=== PATIENT | female | born 1965 | race Caucasian/White ===

== ENCOUNTER 2022-09-04 08:34 | Outpatient (CLI) | payer OTHER, SELFPAY | END 2022-09-04 08:35 | disposition home or self-care (01) | LOC: NFLDREF 09-06 06:35 | PROVIDERS: Visit Provider Obstetrics & Gynecology | DX: N95.0 Postmenopausal bleeding (principal) | CPT/HCPCS: 83001 ==

== ENCOUNTER 2022-09-25 08:10 | Day surgery (SDC) | payer OTHER, SELFPAY ==
[2022-09-25] MEDS: LACTATED RINGERS 1000 ML 1,000 ML 100 ML IV (08:15)
[2022-09-25] MEDS: BUPIVACAINE 0.25% 30 ML INJECTION (08:22)
[2022-09-25] MEDS: LIDOCAINE 1% MDV 20 ML INJECTION (08:22)
[2022-09-25 08:25] VITALS: BP 95/64; PULSE 65; RESP 16; TEMP 36.2; O2SAT 98; BMI 22.3
[2022-09-25] MEDS: SODIUM CHLORIDE 0.9 % (FLUSH) 10 ML SYRINGE IVF (08:37)
--- NOTE | 2022-09-25 09:41 | W.PM.GYNPROC ---
Procedure Note Date of procedure: 09/25/22 Pre-op diagnosis: Postmenopausal vs. perimenopausal bleeding, possible endometrial polyp Post-op diagnosis: same Procedure: Hysteroscopy, D&C, polypectomy Anesthesia: MAC and local Complications: None. Surgeon: Kavita Laird MD Estimated blood loss (mL): 5 Pathology: specimen obtained, sent to pathology Condition: stable Disposition: same day Findings: Two endometrial polyps. Procedure Description: PREOPERATIVE DIAGNOSIS: 1. Postmenopausal versus sidra menopausal bleeding 2. Possible endometrial polyp(s) on endometrial biopsy. POSTOPERATIVE DIAGNOSIS: 1. Postmenopausal versus sidra menopausal bleeding 2. Possible endometrial polyp(s) on endometrial biopsy. NAME OF PROCEDURE: 1. Hysteroscopy. 2. D and C 3. Polypectomy. SURGEON: Sisi. ANESTHESIA: Monitored anesthesia care and paracervical block. COMPLICATIONS: None.. ESTIMATED BLOOD LOSS: 5 mL. FINDINGS: 2 endometrial polyps, 1 significantly large than the other. PATHOLOGY SPECIMENS: 1. Endometrial polyp fragments and endometrial curettings sent as a single specimen.. PROCEDURE: After obtaining informed consent, the patient was taken to the operating room where she received monitored anesthesia care. She was prepared and draped in the normal sterile fashion, in the dorsal lithotomy position. An open-sided bivalve speculum was introduced into the vagina and the cervix visualized. The anterior lip of the cervix was grasped with a single-tooth tenaculum for traction. A paracervical block was then administered using a total of 20 mL of a 50/50 mixture of 0.25% Marcaine and 1% lidocaine plain. The uterus was gently sounded. Sound length was 5 cm. The cervix was gently dilated to a #7 Hegar dilator. A 5 mm hysteroscope was then advanced under direct visualization through the cervix into the uterine cavity. Sterile normal saline was used as distending medium. The uterine cavity was carefully inspected with the findings noted above. Pictures were taken for documentation purposes. The TruClear morcellator was inserted through the operating channel in the hysteroscope. The morcellator was used to remove the polyps in their entirety. The hysteroscope was then removed. The endometrial lining was then sharply curetted, little residual tissue was obtained. The tenaculum was removed. All instruments were then removed. The patient tolerated the procedure well. Sponge, lap, needle, and instrument counts reported as correct x2. The patient was taken to the recovery room awake in a stable condition.
[2022-09-25 09:47] VITALS: BP 111/69; PULSE 54; RESP 14; TEMP 36.6; O2SAT 97
--- NOTE | 2022-09-25 09:48 | W.ANESCHARGE ---
Anesthesia Charges Start Date/Time Anesthesia Start Date: 09/25/22 Anesthesia Start Time: 09:06 Stop Date/Time Anesthesia Stop Date: 09/25/22 Anesthesia Stop Time: 09:47
[2022-09-25 10:00] VITALS: BP 105/66; PULSE 49; RESP 16; O2SAT 100
[2022-09-25 10:15] VITALS: BP 119/68; PULSE 55; RESP 16; O2SAT 100
[2022-09-25 10:49] VITALS: BP 103/63; PULSE 51; RESP 16; O2SAT 97
== END 2022-09-25 10:52 | disposition home or self-care (01) ==
PROVIDERS: PCP Family Medicine; Visit Provider Obstetrics & Gynecology
PROC: 0UDB8ZZ Extraction of Endometrium, Via Natural or Artificial Opening Endoscopic (ICD-10-PCS; CPT 58558; principal; 2022-09-25 09:30)
DX: N95.0 Postmenopausal bleeding (principal); N84.0 Polyp of corpus uteri
CPT/HCPCS: 58558; 00952; 81025; 88305; J0665; J1100; J1885; J2405; J2704; J3010; J7120

== ENCOUNTER 2022-11-15 07:45 | Outpatient (CLI) | payer OTHER, SELFPAY | END 2022-11-15 07:46 | disposition home or self-care (01) | LOC: NFLDREF 11-16 06:55 | PROVIDERS: PCP Family Medicine; Visit Provider Family Medicine | DX: I82.629 Acute embolism and thrombosis of deep veins of unspecified upper extremity (principal); R53.83 Other fatigue; E03.9 Hypothyroidism, unspecified; E55.9 Vitamin D deficiency, unspecified; D64.9 Anemia, unspecified; N95.0 Postmenopausal bleeding; Z13.6 Encounter for screening for cardiovascular disorders | CPT/HCPCS: 80053; 80061; 81241; 82306; 82607; 82728; 84439; 84443 ==

== ENCOUNTER 2023-01-14 08:55 | Outpatient (CLI) | payer OTHER, SELFPAY | END 2023-01-14 08:56 | disposition home or self-care (01) | LOC: NFLDREF 01-16 11:00 | PROVIDERS: PCP Family Medicine; Referring Provider Family Medicine; Visit Provider Family Medicine | DX: E03.9 Hypothyroidism, unspecified (principal); R79.89 Other specified abnormal findings of blood chemistry; D72.819 Decreased white blood cell count, unspecified; E55.9 Vitamin D deficiency, unspecified; D68.51 Activated protein C resistance; Z13.9 Encounter for screening, unspecified | CPT/HCPCS: 80076; 84443; 86803 ==

== ENCOUNTER 2023-02-28 08:09 | Outpatient (CLI) | payer OTHER, SELFPAY ==
--- NOTE | 2023-02-28 08:15 | CRLHL7_ITS ---
For Patients: As a result of the Century Cures Act, medical imaging exams and procedure reports are released immediately into your electronic medical record. You may view this report before your referring provider. If you have questions, please contact your health care provider. BILATERAL SCREENING MAMMOGRAM WITH COMPUTER-AIDED DETECTION AND TOMOSYNTHESIS TECHNIQUE: CC and MLO views were obtained. These mammographic images have been obtained using full-field digital technique. These mammographic images were interpreted with the benefit of computer-aided detection. Breast Tomosynthesis was used in this interpretation. COMPARISON FILM: 01/08/22, 11/21/20. FINDINGS: There are scattered areas of fibroglandular density IMPRESSION: There is no radiographic evidence for malignancy. ASSESSMENT: BI-RADS Category 1: Negative RECOMMENDATION: Routine screening mammogram in 1 year. A lay language report of this examination will be provided to the patient. Enid Sanders M.D. Diagnostic/Breast Radiologist [email or web address] JOSE/Dictated by: Enid Sanders MD @ 02/28/2023 11:29:00 AM (Electronically Signed)
== END 2023-02-28 08:10 | disposition home or self-care (01) ==
LOC: MAMMO 08:09
PROVIDERS: PCP Family Medicine; Visit Provider Family Medicine
DX: Z12.31 Encounter for screening mammogram for malignant neoplasm of breast (principal)
CPT/HCPCS: 77063; 77067

== ENCOUNTER 2023-10-03 03:27 | Emergency (ER) | payer OTHER, SELFPAY ==
[2023-10-03 03:34] VITALS: BP 124/80; PULSE 79; RESP 16; TEMP 36.6; O2SAT 98; BMI 22.8
--- NOTE | 2023-10-03 03:39 | ED_ITS ---
HPI - General Adult General Chief complaint: Anxiety Stated complaint: tingling in both arms, anxiety Time Seen by Provider: 10/03/23 03:39 History of Present Illness HPI narrative: bilat arm and shoulder tingle and increased burping with dry mouth - wants to make sure she doesnt have cardiac problems. did take a lexapro pill yesterday, not regularly taking it. states now she is in the ER feels like chest may be hurting. worried about her blood pressure. 57-year-old woman presenting to the emergency department with concern of tingling in her arms and possible heart problem. She woke with this. 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 Tingling both arms. Was not hyperven tilating. Pain then into though right shoulder which she thinks is tension. She notes herself to have been burping as well. She was also feeling a sensation of a rash demonstrating the bilateral forearms at least. No rash actually apparent. Not have heart problems. She does not take regular medication for anxiety. Is quite insightful as a therapist herself and does acknowledge that she is experiencing considerable stress lately. On triage was expressing concern about her blood pressure which was measured at 124/80. Related Data Previous Rx's ?Medication ?Instructions ?Recorded escitalopram oxalate 10 mg tablet 10 mg PO QDAY #90 tabs 01/18/23 (Lexapro) lorazepam 1 mg tablet 0.5 - 1 mg (0.5 - 1 x 1 mg) PO BID 10/03/23 PRN #6 tabs propranolol 20 mg tablet 20 mg PO TID PRN anxiety #30 tabs 10/03/23 Allergies Allergy/AdvReac Type Severity Reaction Status Date / Time No Known Drug Allergies Allergy Verified 10/03/23 03:34 Review of Systems Status of ROS: Reports: 6 or more systems reviewed and unremarkable except as noted in History and below [facility] Medical History Postmenopausal bleeding ?N95.0 - Postmenopausal bleeding (ICD-10) Anxiety ?F41.9 - Anxiety disorder, unspecified (ICD-10) Vitamin D deficiency ?E55.9 - Vitamin D deficiency, unspecified (ICD-10) Factor 5 Leiden mutation, heterozygous ?D68.51 - Activated protein C resistance (ICD-10) Hypothyroid ?E03.9 - Hypothyroidism, unspecified (ICD-10) History of depression (2005) ?Z86.59 - Personal history of other mental and behavioral disorders (ICD-10) Basal cell carcinoma ?C44.91 - Basal cell carcinoma of skin, unspecified (ICD-10) History of asthma ?Z87.09 - Personal history of other diseases of the respiratory system (ICD- 10) History of DVT (deep vein thrombosis) (~1996) ?Z86.718 - Personal history of other venous thrombosis and embolism (ICD-10) Surgical History Status post hysteroscopic polypectomy (09/25/22) ?Z98.890 - Other specified postprocedural states (ICD-10) H/O basal cell carcinoma excision (~2015) ?Z98.890 - Other specified postprocedural states (ICD-10) ?Z85.828 - Personal history of other malignant neoplasm of skin (ICD-10) History of colposcopy ?Z98.890 - Other specified postprocedural states (ICD-10) History of lumpectomy (2000) ?Z98.890 - Other specified postprocedural states (ICD-10) Family History Father Diabetes Mother Alzheimer's dementia, Onset Age: 70 Paternal Grandmother CHF (congestive heart failure), Onset Age: 70 Maternal Grandmother Breast cancer, Onset Age: 60 Family/Other Ovarian cancer, Onset Age: 60 Social History Narrative: Single, , 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[place], no kids Lifetime nonsmoker 3 alcoholic drinks a week Exercise 3 times a week walking 5 miles What is your current living situation?: I presently have a place to live Problems where you live: no known problems In the past 12 months, utilities in danger of being shut off: no In past 12 months, lack of transportation kept you from medical appts, meetings, work, or getting things needed for daily living: no In the past 12 mos, have been you worried that your food would run out before you had money to buy more?: never true In the past 12 mos, the food you bought just didn't last and you didn't have money to buy more?: never true Smoking Status: Never smoker How often do you have a drink containing alcohol: monthly or less How many standard drinks containing alcohol do you have on a typical day: 3 or 4 AUDIT-C Alcohol total score: 2 Non-prescribed substance use: denies use Caffeine: No Are you now , , , , never or living with a partner: Social isolation score (0-1 are the most socially isolated patients): 0 How often does anyone, including family, friends and others, physically hurt you : never How often does anyone, including family, friends and others, insult or talk down to you: never How often does anyone, including family, friends and others, threaten you with harm: never How often does anyone, including family, friends and others, scream or curse at you: never Little interest or pleasure in doing things: not at all Feeling down, depressed, or hopeless: not at all Are you using contraception or practicing any form of control: No Exam Narrative: Exam Narrative: Pleasant. Does appear mildly concerned mildly anxious. Cranial nerves 2-12 intact. She is moving all extremities without difficulty. Well-perfused. No peripheral edema. Breathing easily. Heart in regular rate and rhythm without murmur rub or gallop. Lungs are clear. Speaking fluidly, easily. Const: Vital Signs, click to edit/add: Vital Signs - 24 hr 10/03/23 03:34 Temperature 97.9 F Pulse Rate [Pulse Oximeter] 79 Respiratory Rate 16 Blood Pressure [Ri ght Upper Arm] 124/80 Pulse Oximetry 98 Oxygen Delivery Me thod Room Air Documenting provider has reviewed patient's vital signs: yes Course Vital Signs Vital signs: Initial Vital Signs Temperature 97.9 F 10/03/23 03:34 Temperature Source Temporal Artery Scan 10/03/23 03:34 Pulse Rate 79 10/03/23 03:34 Respiratory Rate 16 10/03/23 03:34 Blood Pressure 124/80 10/03/23 03:34 Blood Pressure Mean 94 10/03/23 03:34 Blood Pressure Position Sitting 10/03/23 03:34 Pulse Oximetry 98 10/03/23 03:34 Oxygen Delivery Method Room Air 10/03/23 03:34 Vital Signs Temperature 97.9 F 10/03/23 03:34 Pulse Rate 79 10/03/23 03:34 Respiratory Rate 16 10/03/23 03:34 Blood Pressure 124/80 10/03/23 03:34 Pulse Oximetry 98 10/03/23 03:34 Oxygen Delivery Method Room Air 10/03/23 03:34 Temperature 97.9 F 10/03/23 03:34 Pulse Rate 79 10/03/23 03:34 Respiratory Rate 16 10/03/23 03:34 Blood Pressure 124/80 10/03/23 03:34 Pulse Oximetry 98 10/03/23 03:34 Oxygen Delivery Method Room Air 10/03/23 03:34 Medical Decision Making MDM Narrative Medical decision making narrative: Does mention a few times that thinks that this is likely related to anxiety. Some degree of hyperventilation may have been occurring. I am inclined to agree. EKG is reassuring. I discussed potential option is though for evaluation. Is overall improved. Settle on checking a troponin. EKG has already been done. Troponin is negative. No further events or time in the emergency department. Lab Data Lab results reviewed: Yes I reviewed the patient's lab results Labs: Lab Results 10/03/23 Range/Units 04:05 POC Troponin I 0.00 L (0.01-0.04) ng/ml ECG Data Attestation: I personally reviewed and interpreted this ECG as follows: (Normal sinus rhythm at a rate of 71. No ischemic changes identified) Discharge Plan Discharge Clinical Impression: Anxiety attack, Other social stressor Patient Disposition: Home, Self-Care Condition: Improved Additional Instructions: I am sorry you are going through this. I am sure you have considered numerous coping strategies. Lorazepam might be further helpful. Prescriptions: New lorazepam 1 mg tablet 0.5 - 1 mg PO BID PRNQty: 6 0RF propranolol 20 mg tablet 20 mg PO TID PRN (Reason: anxiety) Qty: 30 0RF No Action escitalopram oxalate [Lexapro] 10 mg tablet 10 mg PO QDAY Qty: 90 3RF Follow Up/Referrals: Lisa Fuentes MD [Primary Care Provider] - Stand Alone Forms: [facility] Info Instructions
--- OUTSIDE RECORDS SUMMARY | 2023-10-03 04:18 | XMS_ITS | Clinical Summary ---
Author Organization [facility] Address [place], [place] [address] Care Team Providers Care Edge Polisher Name Role Phone Pcp, No Primary Care Provider Unavailabl e Allergies Active Allergy Reactions Criticality Noted Date Comments Bee Venom Protein (Honey Bee) Anaphylaxis High 05/30 Cats (Fur, Dander, Saliva) Wheezing Medications Medication Sig Dispensed Refills Start Date End Date Status escitalopram oxalate (LEXAPRO) 10 mg tabletIndications:Anx iety TAKE 1 TABLET(10 MG) BY MOUTH EVERY MORNING 60 Tablet 07/23/2022 Active Active Problems Problem Noted Date Diagnosed Date Factor V Leiden mutation 09/18/2021 History of hypothyroidism 06/06/2021 Overview: TSH normal 2020. Not on meds Adjustment disorder with anxious mood 05/30/2020 Immunizations Name Administration Dates Next Due COVID-19 vaccine (Moderna 50 mcg/0.5mL) 12YO+ BIVALENT PF, MDV 01/22/2022 COVID-19 vaccine (Pfizer-BioNTech 30mcg/0.3mL) P F, MDV 02/08/2021 Zoster (Shingrix-RZV, recombinant) 12/21/2021, Family History Medical History Relation Name Comments Diabetes Father Hyperlipidemia Father Hypertension Father Cancer-breast Maternal Grandmother Dementia Mother Relation Name Status Comments Father Maternal Grandmother Mother Social History Tobacco Use Types Packs/Day Years Used Date Smoking Tobacco: Never Smokeless Tobacco: Never Tobacco Cessation:Counseling Given: Yes Alcohol Use Standard Drinks/Week Comments Yes 0 (1 standard drink = 0.6 oz pur e alcohol) PHQ-2 Answer Date Recorded PHQ-2 TOTAL SCORE 0 09/18/2021 Social Connections Answer Date Recorded Frequency of Communication with Friends and Fami ly Not on file 03/11/2021 Alcohol Use Answer Date Recorded How often do you have a drink containing alcohol ? 3 06/06/2021 How many drinks containing a lcohol do you have on a typical day when you are drinking? 0 06/06/2021 How often do you have five or more drinks on one occasion? 0 06/06/2021 Financial Resource Strain Answer Date R ecorded Difficulty of Paying Living Expenses Not on file 03/11/2021 Difficulty of Paying Living Expenses Not on file 03/11/2021 Sex and Gender Information Value Date Recorded Sex Assigned at Not on file Gender Identity Not on file Sexual Orientation Not on file Obstetrics History Last Filed Vital Signs Vital Sign Reading Time Taken Comments Blood Pressure 100/69 09/18/2021 9:41 AM CDT Pulse 71 09/18/2021 9:37 AM CDT Temperature - - Respiratory Rate - - Oxygen Saturation 95% 09/18/2021 9:37 AM CDT Inhaled Oxygen Concentration - - Weight 66.9 kg (147 lb 6.4 oz) 09/18/2021 9:37 A M CDT Height 175 cm (5' 8.9) 09/18/2021 9:37 AM CDT Body Mass Index 21.83 09/18/2021 9:37 AM CDT Plan of Treatment Health Maintenance Due Date Last Done Comments Tdap 1977 HIV for age 15-65 1981 Hepatitis C screening for age 18-79 1984 Tetanus booster 1986 Colonoscopy through age 75 10/31/2011 BMI (ht and wt on same day) for age 18+ 09/18/2022 09/18/2021, 06/06/2021, 05/30/2020 Depression screening for age 12+ 09/18/2022 09/18/2021, 06/08/2021, 06/08/2021, Additional history exists COVID-19 vaccine series (2022- season) 2022 01/22/2022, 02/08/2021, 06/28/2020, Additional history exists Mammogram for age 45-75 01/17/2023 01/18/20, 01/08/2022, 11/21/2020 Influenza for age 50-64 11/10/2023 Lipids for age 45-75 06/03/2025 06/03/2020 Pap test for age 21-65 11/21/2025 11/21/2022, 2022 Zoster (shingles) series for age 50+ Completed 12/21/2021, 09/18/2021 Pneumococcal series for age 6-64 Aged Out No longer eligible based on patient's age to complete this topic Procedures Procedure Name Priority Date/Time Associated Diagnosis Comments HPV THIN PREP Routine 11/21/2022 10:43 AM CDT XR MAMMO LISA UNI ADDL VIEWS RIGHT TONY 01/17/2022 2:15 PM SCHOOL SUPERINTENDENT Abnormal mammogram LIPID PANEL W REFLEX MEASURED LDL Routine 06/03/2020 10:00 AM CDT Lipid screening from Last 3 Months or Most Recently Relevant to Health Maintenance Results * HPV HIGH RISK (11/21/2022 10:43 AM CDT) TYPE 16 Negative Negative 11/26/2022 11:12 AM CDT [facility] TYPE 18 Negative Negative 11/26/2022 11:12 AM CDT [facility] OTHER HIGH RISK TYPES Negative Negative 11/26/2022 11:12 AM CDT [facility] Other (Cervical/Vagina l) 11/21/2022 10:43 AM CDT 11/22/2022 2:48 PM CDT Narrative [facility] - 11/26/2022 11:12 AM CDT HPV types 16, 18, 31, 33, 35, 39, 45, 51, 52, 56, 58, 59, 66 and 68 DNA were undetectable or below the pre-set threshold. Methodology: Fred Jordyn 4800 HPV Test Lisa Fuentes MD MICROBIOLOGY [facility] [address] [place] [address], * XR MAMMO LISA UNI ADDL VIEWS RIGHT (01/17/2022 2:15 PM SCHOOL SUPERINTENDENT) Anatomical Region Laterality Modality BREASTS, Breast Right Mammograph y Impressions 01/18/2022 8:54 AM SCHOOL SUPERINTENDENT ??The density on the mammogram was very likely part of the pectoralis muscle and not a true intramammary lesion. ?? RECOMMENDATION: ??Annual mammography is recommended. BI-RADS Category 1: Negative Colton Gamino M.D. Diagnostic/Nuclear Medicine Radiologist [email or web address] [email or web address] / PATIENTS: You will also receive a letter with your examination results in an easy to read format. ??If you have questions about your results, please contact your referring provider. Narrative 01/18/2022 8:54 AM SCHOOL SUPERINTENDENT As a result of the Cures Act, medical imaging exams and procedure reports are released immediately into your electronic medical record. ??You may view this report before your referring provider. ??If you have questions, please contact your health care provider. RIGHT DIGITAL ADDITIONAL VIEWS MAMMOGRAM WITH TOMOSYNTHESIS, 01/17/2022 RIGHT BREAST ULTRASOUND, 01/17/2022 CLINICAL HISTORY: ??56-year-old asymptomatic female. ??Focal asymmetry posterior depth RIGHT breast seen on the CC view of the recent mammogram 01/08/2022. ??Follow up. ? TECHNIQUE: ??A true ML view of the RIGHT breast was performed. ??An exaggerated CC view medially was performed. ??Digital breast tomosynthesis utilized. ?? A unilateral RIGHT breast ultrasound was also performed. ?? COMPARISON: ??01/08/2022. ??11/21/2020. BREAST COMPOSITION: ??There are scattered areas of fibroglandular density FINDINGS: ??Persistent incompletely visualized density medial RIGHT breast probably at the 3 o'clock position. ??This may reflect part of the pectoralis muscle. ??Ultrasound is recommended for further characterization. ??Please see ultrasound report from the same date. Directed RIGHT LEFT breast ultrasound with this radiologist present. ?? FINDINGS: ??The RIGHT breast was carefully scanned between the 3 o'clock and 6 o'clock position. ??Brick Baker images were obtained. ??Only normal breast tissue was identified. ??No cystic or solid lesions were identified. These findings were discussed in detail with the patient. ??No further workup or follow-up is recommended at this time. ?? Pat Garcia MD MAMMO * LIPID PANEL W REFLEX MEASURED LDL (06/03/2020 10:00 AM CDT) CHOLESTEROL,TOTAL 158 100 - 199 mg/dL 06/03/2020 5:55 PM CDT [facility] [employer] [facility] TRIGLYCERIDES 48 <150 mg/dL 06/03/2020 5:55 PM CDT [facility] HDL CHOLESTEROL 65 >40 mg/dL 5:55 PM CDT [facility] NON-HDL CHOLESTEROL 93 <145 mg/dl 06/03/2020 5:55 PM CDT [facility] CHOL/HDL RATIO 2.43 <4.50 06/03/2020 5:55 PM CDT [facility] LDL CHOLESTEROL 83 <=130 mg/dL 06/03/2020 5:55 PM CDT [facility] PROVIDER ORDERED STATUS RANDOM 06/03/2020 5:55 PM CDT [facility] Blood BLOOD SPECIMEN / Unknown Venipuncture / Unknown 06/03/2020 10:00 AM CDT 06/03/2020 10:01 AM CDT Pat Garcia MD CHEMISTRY [facility] [employer] [facility] [address] [place] [address], [place] from Last 3 Months or Most Recently Relevant to Health Maintenance Care Teams Edge Polisher Relationship Specialty Start Date End Date Pcp, No . PCP - General 07/08/23
== END 2023-10-03 05:25 | disposition home or self-care (01) ==
PROVIDERS: Emergency Provider Family Medicine; PCP Family Medicine
DX: F41.8 Other specified anxiety disorders (principal); F43.0 Acute stress reaction
CPT/HCPCS: 84484; 93005; 99284

== ENCOUNTER 2024-01-13 08:08 | Outpatient (CLI) | payer OTHER, SELFPAY ==
--- OUTSIDE RECORDS SUMMARY | 2024-01-13 08:40 | XMS_ITS | Clinical Summary ---
Author Organization [facility] Address [place], [place] [address] Care Team Providers Care Repairer Cylinder Heads Name Role Phone Pcp, No Primary Care [...] Leiden mutation 09/18/2021 History of hypothyroidism 06/06/2021 Overview (06/06/2021): TSH normal 2020. Not on meds Adjustment [...] 09/18/2022 09/18/2021, 06/08/2021, 06/08/2021, Additional history exists Mammogram for age 45-75 01/17/2023 01/18/20, 01/08/2022, 11/21/2020 COVID-19 vaccine series ( season) 2023 01/22/2022, 02/08/2021, 06/28/2020, Additional history exists Influenza for age 50-64 11/10/2023 Lipids for age 45-75 06/03/2025 06/03/2020 Pap test for age 21-65 11/21/2025 11/21/2022, 2022 Zoster (shingles) series for age 50+ Completed 12/21/2021, 09/18/2021 Pneumococcal series for age 6-64 Aged Out No longer eligible based on patient's age to complete this topic Procedures Procedure Name Priority Date/Time Associated Diagnosis Comments HPV HIGH RISK Routine 11/21/2022 10:43 AM CDT XR MAMMO LISA UNI ADDL VIEWS RIGHT TONY 01/17/2022 2:15 PM SEISMOGRAPH OPERATOR Abnormal mammogram LIPID PANEL W REFLEX MEASURED LDL Routine 06/03/2020 10:00 AM CDT Lipid screening from Last 3 Months or Most Recently Relevant to Health Maintenance Results * HPV HIGH RISK (11/21/2022 10:43 AM CDT) TYPE 16 Negative Negative 11/26/2022 11:12 AM CDT [facility] TYPE 18 Negative Negative 11/26/2022 11:12 AM CDT [facility] OTHER HIGH RISK TYPES Negative Negative 11/26/2022 11:12 AM CDT [facility] Other (Cervical/Vagina l) 11/21/2022 10:43 AM CDT 11/22/2022 2:48 PM CDT Narrative [facility] - 11/26/2022 11:12 AM CDT HPV types 16, 18, 31, 33, 35, 39, 45, 51, 52, 56, 58, 59, 66 and 68 DNA were undetectable or below the pre-set threshold. Methodology: Fred Jordyn 4800 HPV Test Lisa Fuentes MD [facility] [address] [facility] [place] [address], [place] * XR MAMMO LISA UNI ADDL VIEWS RIGHT (01/17/2022 2:15 PM SEISMOGRAPH OPERATOR) Anatomical Region Laterality Modality BREASTS, Breast Right Mammograph y Impressions 01/18/2022 8:54 AM SEISMOGRAPH OPERATOR ??The density on the mammogram was very likely part of the pectoralis muscle and not a true intramammary lesion. ?? RECOMMENDATION: ??Annual mammography is recommended. BI-RADS Category 1: Negative Colton Gamino M.D. Diagnostic/Nuclear Medicine Radiologist [employer] [email or web address] / PATIENTS: You will also receive a letter with your examination results in an easy to read format. ??If you have questions about your results, please contact your referring provider. Narrative 01/18/2022 8:54 AM SEISMOGRAPH OPERATOR As a result of the Century Cures Act, medical imaging exams and procedure [...] the 3 o'clock and 6 o'clock position. ??Yarn Comber images were obtained. ??Only normal breast tissue was identified. ??No cystic or solid lesions were identified. These findings were discussed in detail with the patient. ??No further workup or follow-up is recommended at this time. ?? Pat Garcia MD MAMMO * LIPID PANEL W REFLEX MEASURED LDL (06/03/2020 10:00 AM CDT) CHOLESTEROL,TOTAL 158 100 - 199 mg/dL 06/03/2020 5:55 PM CDT [facility] TRIGLYCERIDES 48 <150 mg/dL 06/03/2020 5:55 PM CDT [facility] HDL CHOLESTEROL 65 >40 mg/dL 5:55 PM CDT [facility] NON-HDL CHOLESTEROL 93 <145 mg/dl 06/03/2020 5:55 PM CDT [facility] CHOL/HDL RATIO 2.43 <4.50 06/03/2020 5:55 PM CDT [facility] LDL CHOLESTEROL 83 <=130 mg/dL 06/03/2020 5:55 PM CDT [facility] PROVIDER ORDERED STATUS RANDOM 06/03/2020 5:55 PM CDT [facility] Blood BLOOD SPECIMEN / Unknown Venipuncture / Unknown 06/03/2020 10:00 AM CDT 06/03/2020 10:01 AM CDT Pat Garcia MD CHEMISTRY [facility] [address] [place] [address], [place] from Last 3 Months or Most Recently Relevant to Health Maintenance Care Teams Repairer Cylinder Heads Relationship Specialty Start Date End Date Pcp, No . PCP - General 07/08/23
== END 2024-01-13 08:09 | disposition home or self-care (01) ==
PROVIDERS: PCP Family Medicine; Visit Provider Family Medicine
DX: Z00.00 Encounter for general adult medical examination without abnormal findings (principal); E03.9 Hypothyroidism, unspecified; D72.819 Decreased white blood cell count, unspecified; R79.89 Other specified abnormal findings of blood chemistry; E55.9 Vitamin D deficiency, unspecified; Z13.6 Encounter for screening for cardiovascular disorders; Z13.1 Encounter for screening for diabetes mellitus; Z11.59 Encounter for screening for other viral diseases; Z11.3 Encounter for screening for infections with a predominantly sexual mode of transmission; Z79.899 Other long term (current) drug therapy
CPT/HCPCS: 80053; 80061; 82306; 82607; 84436; 84443; 84481; 86376; 86592; 86703; 86803; 87491; 87591

== ENCOUNTER 2024-03-25 08:54 | Outpatient (CLI) | payer OTHER, SELFPAY | END 2024-03-25 08:55 | disposition home or self-care (01) | LOC: NFLDREF 03-30 03:55 | PROVIDERS: PCP Family Medicine; Referring Provider Family Medicine; Visit Provider Family Medicine | DX: E03.9 Hypothyroidism, unspecified (principal); R79.89 Other specified abnormal findings of blood chemistry | CPT/HCPCS: 80053; 80061; 84443 ==

== ENCOUNTER 2024-04-14 09:11 | Outpatient (CLI) | payer OTHER, SELFPAY ==
--- NOTE | 2024-04-14 09:15 | CRLHL7_ITS ---
For Patients: As a result of the Cures Act, medical imaging exams and procedure reports are released immediately into your electronic medical record. You may view this report before your referring provider. If you have questions, please contact your health care provider. BILATERAL SCREENING MAMMOGRAM WITH COMPUTER-AIDED DETECTION AND TOMOSYNTHESIS TECHNIQUE: CC and MLO views were obtained. These mammographic images have been obtained using full-field digital technique. These mammographic images were interpreted with the benefit of computer-aided detection. Breast Tomosynthesis was used in this interpretation. COMPARISON FILM: 02/28/23, 01/08/22, 11/21/20. FINDINGS: There are scattered areas of fibroglandular density IMPRESSION: There is no radiographic evidence for malignancy. ASSESSMENT: BI-RADS Category 1: Negative RECOMMENDATION: Routine screening mammogram in 1 year. A lay language report of this examination will be provided to the patient. Nadir Hughes M.D. Diagnostic Radiologist [email or web address] [email or web address] Transcribed: 4:24 p.mAnder minor/Dictated by: Nadir Hughes MD @ 04/14/2024 10:11:00 AM (Electronically Signed)
== END 2024-04-14 09:12 | disposition home or self-care (01) ==
PROVIDERS: PCP Family Medicine; Visit Provider Family Medicine
DX: Z12.31 Encounter for screening mammogram for malignant neoplasm of breast (principal)
CPT/HCPCS: 77063; 77067

== ENCOUNTER 2024-11-25 09:12 | Outpatient (CLI) | payer OTHER, SELFPAY | END 2024-11-25 09:13 | disposition home or self-care (01) | LOC: NFLDREF 12-02 12:32 | PROVIDERS: PCP Family Medicine; Referring Provider Family Medicine; Visit Provider Family Medicine | DX: E55.9 Vitamin D deficiency, unspecified (principal); R79.89 Other specified abnormal findings of blood chemistry | CPT/HCPCS: 80076; 82306 ==

== ENCOUNTER 2024-12-10 12:13 | Outpatient (CLI) | payer OTHER, SELFPAY | END 2024-12-10 12:14 | disposition home or self-care (01) | PROVIDERS: PCP Family Medicine; Visit Provider Family Medicine | DX: E03.9 Hypothyroidism, unspecified (principal) | CPT/HCPCS: 80053; 80061; 84439; 84443 ==

== ENCOUNTER 2025-02-25 07:50 | Outpatient (CLI) | payer OTHER, SELFPAY | END 2025-02-25 07:51 | disposition home or self-care (01) | LOC: NFLDREF 03-01 13:31 | PROVIDERS: PCP Family Medicine; Referring Provider Family Medicine; Visit Provider Family Medicine | DX: E55.9 Vitamin D deficiency, unspecified (principal) | CPT/HCPCS: 82306 ==